=== PATIENT | male | born 1960 | race Caucasian/White ===

== ENCOUNTER 2024-04-04 06:28 | Inpatient (IN) | payer BC ==
[~2024-04-04] VITALS: Ht 182.9 cm; Wt 86.9 kg
[2024-04-04] VITALS (9 sets, daily range): BP systolic 102–137; BP diastolic 70–80; PULSE 65–84; RESP 14–19; TEMP 95.4–98.8; O2SAT 99–100
[2024-04-04] MEDS ORDERED: potassium Cl 40MEQ/1/2NS 520ml 520 ML IV PRN (07:50)
[2024-04-04] MEDS ORDERED: acetaminophen 325mg tablet PO PRN ×2 (07:50)
[2024-04-04] MEDS ORDERED: magnesium hydroxide 30ml (MOM) UD suspension PO PRN (07:50)
[2024-04-04] MEDS ORDERED: potassium Cl 20 mEq SR tablet PO PRN ×2 (07:50)
[2024-04-04] MEDS ORDERED: magnesium sulf-water 4G/100mL 100 ML IV PRN (07:50)
[2024-04-04] MEDS ORDERED: mag hydrox/Alum hydrox/simeth 30ml oral suspension PO PRN (07:50)
[2024-04-04] MEDS ORDERED: ondansetron/PF 4mg/2ml inj IV PRN (07:50)
[2024-04-04] MEDS ORDERED: magnesium sulf-water 2g/50mL 50 ML IV PRN (07:50)
[2024-04-04] MEDS: K and/or MAG REPLACEMENT MC SCH (08:00)
[2024-04-04] MEDS: docusate sod 100mg capsule PO SCH (08:00)
[2024-04-04] MEDS: pantoprazole 40 MG vial IV STA (08:07)
[2024-04-04] MEDS: normal saline 1000ml 1,000 ML IV SCH (08:17)
[2024-04-04 09:52] LABS: BASOPHILS % (AUTO) 0.6 % (0-1); EOSINOPHILS # (AUTO) 0.1 X10'3 (0-0.9); EOSINOPHILS % (AUTO) 0.9 % (0-6); LYMPHOCYTES # (AUTO) 1.8 X10'3 (1.1-4.8); LYMPHOCYTES % (AUTO) 24.7 % (21-51); MEAN CORPUSCULAR HEMOGLOBIN 25.3 PG (27.0-31.0); MEAN CORPUSCULAR HGB CONC 31.5 g/dL (33.0-36.5); MEAN CORPUSCULAR VOLUME 80.5 FL (78-98); MONOCYTES # (AUTO) 0.8 X10'3 (0-0.9); MONOCYTES % (AUTO) 11.6 % (2-12); NEUTROPHILS # (AUTO) 4.4 X10'3 (1.8-7.7); NEUTROPHILS % (AUTO) 62.2 % (42-75); PLATELET COUNT 427 X10'3 (140-440); RED BLOOD COUNT 2.46 X10'6 (4.70-6.10); RED CELL DISTRIBUTION WIDTH 20.1 % (11.5-14.5); WHITE BLOOD COUNT 7.1 X10'3 (4.5-11.0)
[2024-04-04 10:01] LABS: HEMOGLOBIN 6.2 g/dl (14.0-17.9)
[2024-04-04 10:02] LABS: HEMATOCRIT 19.8 % (42.0-52.0)
[2024-04-04 10:13] LABS: ALANINE AMINOTRANSFERASE 20 U/L (12-78); ALBUMIN 3.3 G/DL (3.4-5.0); ALKALINE PHOSPHATASE 75 IU/L (46-116); ANION GAP 9 (8-16); ASPARTATE AMINO TRANSFERASE 15 U/L (10-37); BILIRUBIN,TOTAL 0.4 MG/DL (0.1-1.0); BLOOD UREA NITROGEN 24 MG/DL (7-18); BUN/CREATININE RATIO 17.9 (10.0-20.0); CALCIUM 8.2 MG/DL (8.5-10.1); CHLORIDE 105 MMOL/L (99-107); CREATININE 1.34 MG/DL (0.60-1.10); GLUCOSE 84 MG/DL (70-104); MAGNESIUM 1.8 MG/DL (1.5-2.4); POTASSIUM 4.8 MMOL/L (3.5-5.1); PRO BRAIN NATRIURETIC PEPTIDE 255 PG/ML (0-125); SODIUM 135 MMOL/L (135-145); TOTAL CARBON DIOXIDE 21.4 MMOL/L (24-32); TOTAL PROTEIN 6.7 G/DL (6.4-8.2); eCRCL 59 ML/MIN; eGFR 54 ML/MIN
[2024-04-04] MEDS ORDERED: GLIM4TAB7 PO (10:16)
[2024-04-04] MEDS ORDERED: ATOR20TA66 PO (10:16)
[2024-04-04] MEDS ORDERED: FLUT1BLS13 PO (10:16)
[2024-04-04] MEDS ORDERED: LISI5TAB22 PO (10:16)
[2024-04-04] MEDS ORDERED: METF-438 PO (10:16)
[2024-04-04] MEDS: pantoprazole 40MG/NS 100ML BAG 100 ML IV SCH (11:00)
[2024-04-04 12:58] LABS: MEAN CORPUSCULAR HEMOGLOBIN 24.3 PG (27.0-31.0); MEAN CORPUSCULAR HGB CONC 30.4 g/dL (33.0-36.5); MEAN CORPUSCULAR VOLUME 79.9 FL (78-98); MEAN PLATELET VOLUME 7.2 FL (7.4-10.4); PLATELET COUNT 441 X10'3 (140-440); RED BLOOD COUNT 2.47 X10'6 (4.70-6.10); RED CELL DISTRIBUTION WIDTH 19.8 % (11.5-14.5)
[2024-04-04] MEDS ORDERED: DEXTROSE 15 GM of carb/4 tabs (each vial/BOTTLE has 4 tablets) PO PRN ×2 (13:00)
[2024-04-04] MEDS ORDERED: glucagon, human recombinant 1mg kit SUBCUT PRN (13:00)
[2024-04-04] MEDS ORDERED: dextrose 50%-water 50ml dispensing syringe IV PRN ×2 (13:00)
[2024-04-04 13:03] LABS: HEMATOCRIT 19.7 % (42.0-52.0)
[2024-04-04 13:07] LABS: % IRON SATURATION 3 % (11-46); IRON 15 UG/DL (53-167); TOTAL IRON BINDING CAPACITY 491 UG/DL (259-388)
[2024-04-04] MEDS: dextrose 5%-water 1,000 ML IV SCH (14:11)
[2024-04-04 14:52] LABS: MEAN CORPUSCULAR HGB CONC 31.2 g/dL (33.0-36.5); MEAN CORPUSCULAR VOLUME 79.9 FL (78-98); MEAN PLATELET VOLUME 6.8 FL (7.4-10.4); PLATELET COUNT 439 X10'3 (140-440); RED BLOOD COUNT 2.53 X10'6 (4.70-6.10); RED CELL DISTRIBUTION WIDTH 19.9 % (11.5-14.5); WHITE BLOOD COUNT 7.4 X10'3 (4.5-11.0)
[2024-04-04 14:54] LABS: HEMOGLOBIN 6.3 g/dl (14.0-17.9)
[2024-04-04 14:55] LABS: HEMATOCRIT 20.2 % (42.0-52.0)
[2024-04-04 15:36] LABS: CHOL/HDL RATIO 2.2 (0.00-4.99); CHOLESTEROL 95 MG/DL (0-200); HDL CHOLESTEROL 44 MG/DL (35-60); LDL CHOLESTEROL 36 MG/DL (50-100); TRIGLYCERIDES 103 MG/DL (20-135)
[2024-04-04 15:56] LABS: OCCULT BLOOD STOOL NEGATIVE (Neg)
[2024-04-04 16:18] LABS: ETHANOL < 10 MG/DL (<10)
[2024-04-04] MEDS: HYDROcodone/acetaminophen 5mg/325mg tablet PO PRN (16:42)
[2024-04-04] MEDS: INSULIN LISPRO 100 UNIT/ML INSULN.PEN MULTI-DOSE SQ SCH (17:00)
[2024-04-04 17:41] LABS: URINE AMPHETAMINE SCREEN NEGATIVE (Neg); URINE BARBITUATE SCREEN NEGATIVE (Neg); URINE BENZODIAZEPINES SCREEN NEGATIVE (Neg); URINE CANNABINOID SCREEN NEGATIVE (Neg); URINE COCAINE SCREEN NEGATIVE (Neg); URINE METHADONE SCREEN NEGATIVE (Neg); URINE OPIATE SCREEN NEGATIVE (Neg); URINE PHENCYCLIDINE SCREEN NEGATIVE (Neg)
[2024-04-04 19:53] LABS: MEAN CORPUSCULAR HEMOGLOBIN 25.9 PG (27.0-31.0); MEAN CORPUSCULAR HGB CONC 32.3 g/dL (33.0-36.5); MEAN CORPUSCULAR VOLUME 80.1 FL (78-98); MEAN PLATELET VOLUME 6.7 FL (7.4-10.4); PLATELET COUNT 391 X10'3 (140-440); RED BLOOD COUNT 2.59 X10'6 (4.70-6.10); RED CELL DISTRIBUTION WIDTH 19.1 % (11.5-14.5); WHITE BLOOD COUNT 6.2 X10'3 (4.5-11.0)
[2024-04-04 19:57] LABS: HEMATOCRIT 20.7 % (42.0-52.0); HEMOGLOBIN 6.7 g/dl (14.0-17.9)
[2024-04-05] VITALS (11 sets, daily range): BP systolic 101–138; BP diastolic 64–81; PULSE 62–79; RESP 14–18; TEMP 97–98.6; O2SAT 99–100
[2024-04-05] MEDS: nitroGLYCERIN 0.4mg SUBLingual tab SL ONE (04:00)
[2024-04-05 04:18] LABS: BASOPHILS % (AUTO) 0.8 % (0-1); EOSINOPHILS # (AUTO) 0.1 X10'3 (0-0.9); EOSINOPHILS % (AUTO) 2.5 % (0-6); HEMATOCRIT 24.1 % (42.0-52.0); HEMOGLOBIN 7.9 g/dl (14.0-17.9); LYMPHOCYTES # (AUTO) 1.2 X10'3 (1.1-4.8); LYMPHOCYTES % (AUTO) 25.8 % (21-51); MEAN CORPUSCULAR HEMOGLOBIN 26.8 PG (27.0-31.0); MEAN CORPUSCULAR VOLUME 81.3 FL (78-98); MEAN PLATELET VOLUME 6.7 FL (7.4-10.4); MONOCYTES # (AUTO) 0.8 X10'3 (0-0.9); MONOCYTES % (AUTO) 16.4 % (2-12); NEUTROPHILS # (AUTO) 2.5 X10'3 (1.8-7.7); NEUTROPHILS % (AUTO) 54.5 % (42-75); PLATELET COUNT 386 X10'3 (140-440); RED BLOOD COUNT 2.96 X10'6 (4.70-6.10); RED CELL DISTRIBUTION WIDTH 19.3 % (11.5-14.5); WHITE BLOOD COUNT 4.6 X10'3 (4.5-11.0)
[2024-04-05 04:28] LABS: ALANINE AMINOTRANSFERASE 24 U/L (12-78); ALBUMIN 3.2 G/DL (3.4-5.0); ALBUMIN/GLOBULIN RATIO 0.9 (1.1-1.5); ALKALINE PHOSPHATASE 84 IU/L (46-116); ANION GAP 7 (8-16); ASPARTATE AMINO TRANSFERASE 23 U/L (10-37); BILIRUBIN,TOTAL 0.9 MG/DL (0.1-1.0); BLOOD UREA NITROGEN 15 MG/DL (7-18); BUN/CREATININE RATIO 14.3 (10.0-20.0); CALCIUM 8.3 MG/DL (8.5-10.1); CHLORIDE 103 MMOL/L (99-107); CREATININE 1.05 MG/DL (0.60-1.10); GLUCOSE 115 MG/DL (70-104); POTASSIUM 4.7 MMOL/L (3.5-5.1); SODIUM 135 MMOL/L (135-145); TOTAL CARBON DIOXIDE 24.8 MMOL/L (24-32); TOTAL PROTEIN 6.6 G/DL (6.4-8.2); eCRCL 76 ML/MIN; eGFR 71 ML/MIN
[2024-04-05 04:54] LABS: ANISOCYTOSIS 2+; NUCLEATED RED BLOOD CELLS 1 /100WBC (0-0); PLATELET ESTIMATE NORMAL; TOTAL CELLS COUNTED 100
[2024-04-05 04:55] LABS: HYPOCHROMASIA 1+
[2024-04-05 04:56] LABS: POLYCHROMASIA FEW; SCHISTOCYTES FEW
[2024-04-05] MEDS: metoprolol succinate 25mg (24-HOUR) SR. Tablet PO SCH (11:42)
[2024-04-05] MEDS: pantoprazole 40 MG vial IV SCH (21:20)
[2024-04-06 06:00] VITALS: BP 132/85; PULSE 68; RESP 18; TEMP 97.8; O2SAT 100
[2024-04-06 06:40] LABS: BASOPHILS % (AUTO) 0.4 % (0-1); EOSINOPHILS # (AUTO) 0.1 X10'3 (0-0.9); EOSINOPHILS % (AUTO) 1.5 % (0-6); HEMATOCRIT 26.3 % (42.0-52.0); HEMOGLOBIN 8.4 g/dl (14.0-17.9); LYMPHOCYTES # (AUTO) 1.2 X10'3 (1.1-4.8); LYMPHOCYTES % (AUTO) 17.7 % (21-51); MEAN CORPUSCULAR HEMOGLOBIN 26.2 PG (27.0-31.0); MEAN PLATELET VOLUME 7.1 FL (7.4-10.4); MONOCYTES % (AUTO) 15.8 % (2-12); NEUTROPHILS # (AUTO) 4.2 X10'3 (1.8-7.7); NEUTROPHILS % (AUTO) 64.6 % (42-75); PLATELET COUNT 425 X10'3 (140-440); RED CELL DISTRIBUTION WIDTH 19.7 % (11.5-14.5); WHITE BLOOD COUNT 6.5 X10'3 (4.5-11.0)
[2024-04-06 06:51] LABS: ALANINE AMINOTRANSFERASE 23 U/L (12-78); ALBUMIN 3.1 G/DL (3.4-5.0); ALBUMIN/GLOBULIN RATIO 0.8 (1.1-1.5); ALKALINE PHOSPHATASE 79 IU/L (46-116); ANION GAP 9 (8-16); ASPARTATE AMINO TRANSFERASE 16 U/L (10-37); BILIRUBIN,TOTAL 0.3 MG/DL (0.1-1.0); BLOOD UREA NITROGEN 15 MG/DL (7-18); BUN/CREATININE RATIO 15.6 (10.0-20.0); CALCIUM 8.4 MG/DL (8.5-10.1); CHLORIDE 105 MMOL/L (99-107); CREATININE 0.96 MG/DL (0.60-1.10); GLUCOSE 137 MG/DL (70-104); MAGNESIUM 2.1 MG/DL (1.5-2.4); POTASSIUM 4.7 MMOL/L (3.5-5.1); SODIUM 137 MMOL/L (135-145); TOTAL PROTEIN 6.8 G/DL (6.4-8.2); eCRCL 85 ML/MIN; eGFR 79 ML/MIN
[2024-04-06 08:00] VITALS: RESP 16; O2SAT 99
[2024-04-06] MEDS ORDERED: METO-395 PO (10:28)
[2024-04-06] MEDS ORDERED: PANT40TA54 PO (10:28)
[2024-04-06 11:00] VITALS: BP 133/73; PULSE 65; RESP 16; TEMP 98.8; O2SAT 99
== END 2024-04-06 13:02 | disposition home or self-care (01) | DRG 377 ==
LOC: ER 06:29 → ED HOLD 07:57 → PCU 3S 10:45
PROVIDERS: ADMIT Nurse Practitioner Family; ATTEND Nurse Practitioner Family
PROC: 30233N1 Transfusion of Nonautologous Red Blood Cells into Peripheral Vein, Percutaneous Approach (ICD-10-PCS; principal; 2024-04-04)
DX: K92.2 Gastrointestinal hemorrhage, unspecified (principal); I21.A1 Myocardial infarction type 2; N17.9 Acute kidney failure, unspecified; E11.9 Type 2 diabetes mellitus without complications; F17.200 Nicotine dependence, unspecified, uncomplicated; I10 Essential (primary) hypertension; D50.0 Iron deficiency anemia secondary to blood loss (chronic); R06.09 Other forms of dyspnea; I35.0 Nonrheumatic aortic (valve) stenosis; J44.9 Chronic obstructive pulmonary disease, unspecified; Z79.84 Long term (current) use of oral hypoglycemic drugs
CPT/HCPCS: 36415; 36430; 71045; 80053; 80061; 80305; 80320; 82272; 82948; 83036; 83540; 83550; 83735; 83880; 84484; 85007; 85025; 85027; 86885; 86900; 86901; 86920; 87081; 93005; 93306; 99291; A4615; A4620; G0378; J1815; J2470; J7030; J7040; J7070; P9016